=== PATIENT | female | born 1995 | race Caucasian/White ===

== ENCOUNTER 2016-10-16 12:30 | Emergency (ER) | payer OTHER ==
[2016-10-16 12:39] VITALS: BP 121/78
--- NOTE | 2016-10-16 12:52 | UC ---
Throat Pain/Nasal Maldonado HPI - HPI Summary HPI Summary: sinus pain and pressure x 2 week + nasal congestion , cough, pnd no fever, no chills, - History of Current Complaint Chief Complaint: UCGeneralIllness Stated Complaint: SINUS Time Seen by Provider: 10/16/16 12:34 Hx Obtained From: Patient Hx Last Menstrual Period: last week ?: No Onset/Duration: Gradual Onset, Lasting Weeks - 2, Still Present Severity: Moderate Cough: Nonproductive Associated Signs & Symptoms: Positive: Sinus Discomfort, Nasal Discharge. Negative: Drooling, Wheezing, Fever, Rash - Allergies/Home Medications Allergies/Adverse Reactions: Allergies Allergy/AdvReac Type Severity Reaction Status Date / Time No Known Allergies Allergy Verified 10/16/16 12:33 Home Medications: Home Medications Divalproex DR TAB(*) [Depakote DR(*)] 500 mg PO BID 10/16/16 [History Confirmed 10/16/16] Gabapentin CAP(*) [Neurontin 300 CAP(*)] 900 mg PO DAILY 10/16/16 [History Confirmed 10/16/16] Prazosin CAP* [Minipress CAP*] 1 mg PO DAILY 10/16/16 [History Confirmed ] PMH/Surg Hx/FS Hx/Imm Hx Previously Healthy: Yes - Surgical History Surgical History: Yes Surgery Procedure, Year, and Place: , 01/02/12, 04/06/14 - Family History Known Family History: Positive: None Negative: Diabetes - Social History Alcohol Use: None Substance Use Type: None Substance Use Comment - Amount & Last Used: refuses to disclose what she is using Smoking Status (MU): Heavy Every Day Tobacco Smoker Type: Cigarettes Amount Used/How Often: 1/2 ppd Have You Smoked in the Last Year: Yes Household Exposure Type: Cigarettes - Immunization History Most Recent Influenza Vaccination: none Most Recent Tetanus Shot: 01/28/14 Most Recent Pneumonia Vaccination: none Hx Tetanus, Diphtheria Vaccination: Yes Vaccination Up to Date: Yes Review of Systems Constitutional: Negative Skin: Negative Eyes: Negative ENT: Sore Throat, Ear Ache, Nasal Discharge, Sinus Congestion, Sinus Pain/ Tenderness Respiratory: Cough Cardiovascular: Negative Gastrointestinal: Negative All Other Systems Reviewed And Are Negative: Yes Physical Exam Triage Information Reviewed: Yes Appearance: Well-Appearing, No Pain Distress, Well-Nourished Vital Signs: Initial Vital Signs Temp 97.8 F 10/16/16 12:35 Pulse 95 10/16/16 12:35 Resp 16 10/16/16 12:35 BP 121/78 10/16/16 12:35 Pulse Ox 100 10/16/16 12:35 Vital Signs Reviewed: Yes Eyes: Positive: Conjunctiva Clear ENT: Positive: Normal ENT inspection, Hearing grossly normal, Pharyngeal erythema, Nasal congestion, Nasal drainage, TMs normal Neck: Positive: Supple, Nontender, No Lymphadenopathy Respiratory: Positive: Chest non-tender, Lungs clear, Normal breath sounds, No respiratory distress Cardiovascular: Positive: RRR, No Murmur, Pulses Normal Abdominal Exam: Normal Throat Pain/Nasal Course/Dx - Differential Dx/Diagnosis Provider Diagnoses: sinusitis Discharge - Discharge Plan Condition: Stable Disposition: HOME Prescriptions: Amoxicillin/Clavulanate TAB* [Augmentin TAB 875*] 875 mg PO BID #20 tab Patient Education Materials: Sinusitis (ED) Forms: *Work Release Referrals: Wanda Donaldson NP [Primary Care Provider] - 7 Days
== END 2016-10-16 13:00 | disposition home or self-care (01) ==
LOC: UCCORT 12:30
DX: J32.9 Chronic sinusitis, unspecified (principal); F17.210 Nicotine dependence, cigarettes, uncomplicated
CPT/HCPCS: 99212; G0463

== ENCOUNTER 2019-11-14 07:58 | Inpatient (IN) ==
[2019-11-14 09:32] LABS: Urine Appearance Turbid; Urine Bilirubin Negative (Negative); Urine Blood 3+ (Negative); Urine Color Amber; Urine Glucose Negative (Negative); Urine Ketones Negative (Negative); Urine Nitrite Negative (Negative); Urine Protein 2+(100 mg/dL) (Negative); Urine Specific Gravity 1.023 (1.010-1.030); Urine Urobilinogen Negative (Negative)
[2019-11-14 10:23] LABS: Urine Bacteria 1+ (Absent); Urine Red Blood Cell 3+(>10/hpf) (Absent); Urine Squamous Epithelial Cell Present (Absent); Urine White Blood Cell 3+(>20/hpf) (Absent)
[2019-11-14 11:17] LABS: ABS Lymphocytes 2.9 10^3/ul (1.0-4.8); ABS Monocytes 0.5 10^3/ul (0-0.8); ABS Neutrophils 3.9 10^3/ul (1.5-7.7); Eosinophil % 0.4 %; Hematocrit 46 % (35-47); Hemoglobin 15.8 g/dL (12.0-16.0); Lymphocyte % 39.5 %; Mean Corpuscular HGB Conc 35 g/dL (31-36); Mean Corpuscular Hemoglobin 30 pg (27-31); Mean Corpuscular Volume 87 fL (80-97); Mean Platelet Volume 9.4 fL (7.4-10.4); Platelet Count 293 10^3/uL (150-450); Red Blood Count 5.23 10^6 /uL (3.70-4.87); Red Cell Distribution Width 14 % (10-15); White Blood Count 7.4 10^3/uL (3.5-10.8)
[2019-11-14 11:39] LABS: ALT 14 U/L (7-52); AST 12 U/L (13-39); Albumin/Globulin Ratio 1.7 (1-3); Alkaline Phosphatase 47 U/L (34-104); Anion Gap 9 mmol/L (2-11); BUN/Creatinine Ratio 14.6 (8-20); Blood Urea Nitrogen 13 mg/dL (6-24); CO2 Carbon Dioxide 26 mmol/L (22-32); Calcium 10.4 mg/dL (8.6-10.3); Chloride 102 mmol/L (101-111); EGFR African American 92.8 (>60); EGFR Non-African American 76.7 (>60); Globulin 2.9 g/dL (2-4); Glucose 105 mg/dL (70-100); Potassium 3.8 mmol/L (3.5-5.0); Sodium 137 mmol/L (135-145); Total Protein 7.9 g/dL (6.4-8.9)
[2019-11-14 11:46] LABS: HCG Pregnancy < 0.60 mIU/mL
[2019-11-14 13:08] LABS: Acetaminophen < 15 mcg/mL; Alcohol, S < 10 mg/dL (<10); Salicylate < 2.50 mg/dL (<30)
[2019-11-14 13:23] LABS: TSH Ultra Thyroid Stim Horm 1.66 mcIU/mL (0.34-5.60)
[2019-11-14 15:32] LABS: Urine Benzodiazepine Screen None Detected (None Detect); Urine Cannabinoids Screen Presumptive Positive (None Detect); Urine Opiates Screen None Detected (None Detect)
[2019-11-14] MEDS ORDERED: Al Hydrox/Mg Hydrox/Simet LIQ 30 ML UDC PO PRN (18:27)
[2019-11-15] MEDS: Vitamin THERAPEUTIC TAB PO SCH (10:23)
[2019-11-15 20:51] VITALS: BP 99/61
[2019-11-16 08:36] LABS: HDL Cholesterol 39.1 mg/dL
[2019-11-16] MEDS: Vitamin THERAPEUTIC TAB PO SCH (13:07)
== END 2019-11-16 14:00 | disposition home or self-care (01) | DRG 753 ==
LOC: ED 07:58 → BSU 17:20
PROVIDERS: ADMIT Psychiatry & Neurology Addiction Psychiatry; ATTEND Psychiatry & Neurology Psychiatry

== ENCOUNTER 2020-05-19 20:15 | Inpatient (IN) ==
[2020-05-19 21:10] LABS: ABS Basophils 0.1 10^3/ul (0-0.2); ABS Lymphocytes 4.2 10^3/ul (1.0-4.8); ABS Monocytes 1.3 10^3/ul (0-0.8); ABS Neutrophils 8.3 10^3/ul (1.5-7.7); Eosinophil % 0.4 %; Hematocrit 45 % (35-47); Lymphocyte % 30.2 %; Mean Corpuscular HGB Conc 34 g/dL (31-36); Mean Corpuscular Hemoglobin 29 pg (27-31); Mean Corpuscular Volume 85 fL (80-97); Mean Platelet Volume 9.4 fL (7.4-10.4); Platelet Count 273 10^3/uL (150-450); Red Blood Count 5.25 10^6 /uL (3.70-4.87); Red Cell Distribution Width 15 % (10-15); White Blood Count 13.9 10^3/uL (3.5-10.8)
[2020-05-19 21:10] LABS: Urine Benzodiazepine Screen None Detected (None Detect); Urine Cannabinoids Screen Presumptive Positive (None Detect); Urine Opiates Screen None Detected (None Detect)
[2020-05-19 21:13] LABS: Urine Appearance Cloudy; Urine Bilirubin Negative (Negative); Urine Blood 3+ (Negative); Urine Color Yellow; Urine Glucose Negative (Negative); Urine Ketones Trace (Negative); Urine Nitrite Negative (Negative); Urine Protein 1+(30 mg/dL) (Negative); Urine Specific Gravity 1.028 (1.002-1.030); Urine Urobilinogen Negative (Negative)
[2020-05-19 21:19] LABS: Urine Bacteria Absent (Absent); Urine Red Blood Cell 1+(3-5/hpf) (Absent); Urine Squamous Epithelial Cell Present (Absent); Urine White Blood Cell Trace(0-5/hpf) (Absent)
[2020-05-19 21:42] LABS: ALT 8 U/L (7-52); Albumin 4.9 g/dL (3.2-5.2); Albumin/Globulin Ratio 1.9 (1-3); Alkaline Phosphatase 46 U/L (34-104); BUN/Creatinine Ratio 19.8 (8-20); Blood Urea Nitrogen 18 mg/dL (6-24); CO2 Carbon Dioxide 22 mmol/L (22-32); Calcium 10.2 mg/dL (8.6-10.3); Chloride 106 mmol/L (101-111); EGFR African American 90.4 (>60); EGFR Non-African American 74.7 (>60); Globulin 2.6 g/dL (2-4); Glucose 109 mg/dL (70-100); Sodium 140 mmol/L (135-145); Total Protein 7.5 g/dL (6.4-8.9)
[2020-05-19 21:44] LABS: AST 13 U/L (13-39); Anion Gap 12 mmol/L (2-11); Potassium 3.7 mmol/L (3.5-5.0)
[2020-05-19 21:47] LABS: Acetaminophen < 15 mcg/mL; Alcohol, S < 10 mg/dL (<10); Salicylate < 2.50 mg/dL (<30)
[2020-05-19 21:50] LABS: HCG Pregnancy < 0.60 mIU/mL
[2020-05-19 22:03] LABS: TSH Ultra Thyroid Stim Horm 0.93 mcIU/mL (0.34-5.60)
[2020-05-19] MEDS ORDERED: LORazepam 2 mg VIAL 1 ml IM ONE (22:38)
[2020-05-19] MEDS ORDERED: Haloperidol 5 mg/ml SDV IV/IM 5 MG/ML AMP IM ONE (22:38)
[2020-05-19] MEDS ORDERED: Lorazepam PYXIS KEY ONE (22:41)
[2020-05-20] MEDS ORDERED: Al Hydrox/Mg Hydrox/Simet LIQ 30 ML UDC PO PRN (00:25)
[2020-05-20] MEDS ORDERED: Nicotine GUM 2MG FRUIT FLAVOR PO PRN (03:00)
[2020-05-20 08:13] VITALS: BP 112/61
[2020-05-20] MEDS ORDERED: Nicotine PATCH 21 MG/24 HR PATCH TRANSDERM SCH (09:00)
[2020-05-20] MEDS ORDERED: Vitamin THERAPEUTIC TAB PO SCH (09:00)
[2020-05-20] MEDS ORDERED: Naltrexone INJ 380 MG IM ONE (14:47)
== END 2020-05-20 14:15 | disposition home or self-care (01) | DRG 753 ==
LOC: ED 20:15 → BSU 23:30
PROVIDERS: ADMIT Psychiatry & Neurology Psychiatry; ATTEND Psychiatry & Neurology Psychiatry